=== PATIENT | female | born 1935 | race Caucasian/White ===

== ENCOUNTER → 2016-08-20 | Outpatient (REF) ==
[~2016-08-20] MED LIST: ASPIRIN 81M81 MG/TA2 PO; CARDIZEM CD 24240 MG PO; COLACE 100100 MG/CAP PO; COUMADIN 5MG5 MG/TAB PO; DIOVAN 160MG160 MG PO; DIOVAN320 MG PO; DITROPAN XL10 MG PO; DUTOPROL 12.5 M1 TE2 PO; ELIQUIS 5MG PO; IRON90 MG; KEPPRA 500MG500 MG PO; KLOR-CON SPRIN10 MEQ PO; LASIX 40MG TABL40 MG PO; LIPITOR20 MG PO; MELATONIN5 M1 PO; MULTI VITAMINS1 TAB PO; OSCAL 500 TAB500 MG PO; PRIL40 PO; THEO-24 20200 MG/CAP PO; THEO-DUR 2200 MG/TAB PO; TOPROL XL 50MG50 MG PO; TYLENOL 325MG325 MG PO; VITAMIN D32000 IU PO; ZANTAC 150MG T150 MG PO; [UNRECOGNIZED DRUG - OTHER] PO
== END ==
LOC: ZLAB.WCH 11:14
DX: Z01.89 Encounter for other specified special examinations (principal)

== ENCOUNTER → 2016-08-23 | Outpatient (REF) | LOC: ZLAB.WCH 10:17 | DX: Z01.89 Encounter for other specified special examinations (principal) ==

== ENCOUNTER 2018-11-28 12:37 | Day surgery (SDC) | payer MEDICARE, OTHER ==
[~2018-11-28] VITALS: Ht 165.1 cm; Wt 80.6 kg
[2018-11-28 13:26] VITALS: BP 136/90; PULSE 74; TEMP 97.4
[2018-11-28] MEDS ORDERED: BUMEX 1MG TA1 MG/TA1 PO ×2 (13:41)
[2018-11-28] MEDS ORDERED: COZAAR 50MG50 MG/TAB PO (13:44)
[2018-11-28] MEDS ORDERED: THEO-24400 MG PO (13:46)
[2018-11-28] MEDS ORDERED: ELIQUIS 5MG PO (13:47)
[2018-11-28] MEDS ORDERED: IMDUR 30MG30 MG/TAB PO (13:49)
[2018-11-28] MEDS ORDERED: LIPITOR 40MG TA40 MG PO (13:50)
[2018-11-28] MEDS ORDERED: SLOW-MAG 6464 MG/TAB PO (13:51)
[2018-11-28] MEDS ORDERED: MIRALAX PA17 GM/Dose PO (13:53)
[2018-11-28 14:34] VITALS: BP 109/50; PULSE 99; TEMP 97.8
--- NOTE | 2018-11-28 14:34 | NUR ---
TO RM 8 PER CART FROM [facility].. ALERT ORIENTED X3, TALKING TO STAFF AND DAUGHTER. DENIES PAIN OR DISCOMFORT. POST OP SHOE ON. DRESSINGS CLEAN DRY INTACT. DENIES NAUSEA. OPERATIVE LEG ELEVATED. RECEIVED WATER
[2018-11-28 14:50] VITALS: BP 94/47; PULSE 90
--- NOTE | 2018-11-28 14:50 | NUR ---
DENIES FEELING DIZZY OR LIGHT HEADED. LOWERED HEAD OF BED DUE TO LOW B/P.
[2018-11-28 15:05] VITALS: BP 91/51; PULSE 100
--- NOTE | 2018-11-28 15:05 | NUR ---
RECEIVED 2ND CUP OF WATER RECEIVED MUFFIN.
[2018-11-28 15:20] VITALS: BP 85/49; PULSE 114
--- NOTE | 2018-11-28 15:30 | NUR ---
AMBULATED TO BATHROOM WITH POST OP SHOE USING WHEELED WALKER. VOIDED AND TOLERATED WELL
[2018-11-28 16:00] VITALS: BP 104/57; PULSE 122
--- NOTE | 2018-11-28 16:10 | NUR ---
RECEIVED DISCHARGE INSTRUCTIONS AND VERBALIZED UNDERSTANDING. DISCONTINUED IV AND INT- CATHETER INTACT.
--- NOTE | 2018-11-28 16:35 | NUR ---
DISCHARGED PER WC BY NURSING STAFF TO PRIVATE CAR IN CARE OF DAUGHTER.
--- NOTE | 2018-11-28 16:48 | NUR ---
PATIENT STATED SHE FEELS FINE. ATE 100% AND TOLERATED WELL TATE PA- CALLED TO CONFIRM THE USE OF POST OP SHOE AND DRESSING CHANGES.
== END 2018-11-28 16:57 | disposition home or self-care (01) ==
LOC: SDCO 12:37
DX: M1A.9XX1 Chronic gout, unspecified, with tophus (tophi) (principal); I11.0 Hypertensive heart disease with heart failure; I50.9 Heart failure, unspecified; I48.2 Chronic atrial fibrillation; Z88.2 Allergy status to sulfonamides; Z79.01 Long term (current) use of anticoagulants; Z79.899 Other long term (current) drug therapy; Z90.49 Acquired absence of other specified parts of digestive tract; Z79.82 Long term (current) use of aspirin; K21.9 Gastro-esophageal reflux disease without esophagitis; M19.90 Unspecified osteoarthritis, unspecified site; Z86.73 Personal history of transient ischemic attack (TIA), and cerebral infarction without residual deficits; Z80.9 Family history of malignant neoplasm, unspecified; G40.909 Epilepsy, unspecified, not intractable, without status epilepticus
CPT/HCPCS: J0690; J2250; J2310; J3010; J7120

== ENCOUNTER 2020-09-18 20:13 | Emergency (ER) | payer MEDICARE, OTHER ==
[~2020-09-18] VITALS: Ht 165.1 cm; Wt 77.3 kg
[~2020-09-18 20:13] MED LIST changes: +BUMEX 1MG TA1 MG/TA1 PO; +COZAAR 50MG50 MG/TAB PO; +IMDUR 30MG30 MG/TAB PO; +LIPITOR 40MG TA40 MG PO; +MIRALAX PA17 GM/Dose PO; +SLOW-MAG 6464 MG/TAB PO; +THEO-24400 MG PO
[2020-09-18 20:20] VITALS: TEMP 98.1
[2020-09-18 20:42] LABS: BASO % 0.6 % (0.0-2.0); EOS % 0.3 % (0-4.0); GRAN # 5.4 (1.4-6.5); GRAN % 74.9 % (42.2-75.2); HEMOGLOBIN 10.7 g/dl (12.5-16.0); LYMPH # 1.1 (1.2-3.4); MEAN CELL VOLUME 92 fl (80.0-100.0); MEAN CORPUSCULAR HEMOGLOBIN 29 pg (27.0-31.0); MEAN CORPUSCULAR HGB CONC 32 g/dl (33.0-37.0); MEAN PLATELET VOLUME 10.6 fl (7.4-10.4); MONO # 0.6 (0.1-0.6); MONO % 8.9 % (1.7-9.3); PLATELET COUNT 322 K/mm3 (130-400); RED BLOOD COUNT 3.66 M/mm3 (4.10-5.30); REDCELL DISTRIBUTION WIDTH-CV 17.6 % (11.5-14.5)
[2020-09-18 20:44] LABS: HEMATOCRIT 33.8 % (37.0-47.0)
[2020-09-18 20:48] LABS: COLLECTION METHOD CLEAN CATCH
[2020-09-18 20:48] LABS: INR 1.4 (0.8-3.0)
[2020-09-18 20:51] LABS: PARTIAL THROMBOPLASTIN TIME 28.2 SECONDS (26.0-37.0)
[2020-09-18 20:55] LABS: PH 5 (5-8); SQUAMOUS EPITHELIAL 0-2 /hpf; URINE APPEARANCE Hazy; URINE BACTERIA Many /hpf; URINE BILIRUBIN Negative (NEGATIVE); URINE BLOOD Negative (NEGATIVE); URINE COLOR Yellow; URINE GLUCOSE Negative (NEGATIVE); URINE KETONE Negative (NEGATIVE); URINE LEUKOCYTE ESTERASE Trace (NEGATIVE); URINE NITRATE Negative (NEGATIVE); URINE PROTEIN(semi-quant) Negative (NEGATIVE); URINE RBC 0-2 /hpf; URINE UROBILINOGEN Negative (NEGATIVE)
[2020-09-18 20:57] LABS: ALANINE AMINOTRANSFERASE 17 U/L (4-34); ALBUMIN 4.2 gm/dL (3.5-5.0); ALKALINE PHOSPHATASE 122 U/L (50-136); ANION GAP 13 mmol/L (7-16); AST,SGOT 30 U/L (15-37); BILIRUBIN,TOTAL 0.6 mg/dL (0.0-1.0); BLOOD UREA NITROGEN 52 mg/dL (7-17); CALCIUM 10.2 mg/dL (8.4-10.2); CARBON DIOXIDE 21 mmol/L (22-30); CHLORIDE 103 mmol/L (98-107); GLUCOSE 117 mg/dL (74-106); LIPASE 177 U/L (23-300); POTASSIUM 4.3 mmol/L (3.4-5.0); SODIUM 138 mmol/L (137-145)
[2020-09-18 21:10] LABS: TROPONIN-I < 0.012 ng/mL (0.000-0.035)
[2020-09-18] MEDS ORDERED: MACROBID 1100 MG/CAP PO (22:08)
[2020-09-18 22:17] VITALS: BP 108/65; PULSE 98
== END 2020-09-18 22:31 | disposition home or self-care (01) ==
LOC: COL.ER 20:13
PROVIDERS: Emergency Medicine
DX: M25.512 Pain in left shoulder (principal); G89.29 Other chronic pain; N39.0 Urinary tract infection, site not specified; I10 Essential (primary) hypertension; I48.91 Unspecified atrial fibrillation; G40.909 Epilepsy, unspecified, not intractable, without status epilepticus; K21.9 Gastro-esophageal reflux disease without esophagitis; Z85.22 Personal history of malignant neoplasm of nasal cavities, middle ear, and accessory sinuses; Z86.73 Personal history of transient ischemic attack (TIA), and cerebral infarction without residual deficits; Z98.61 Coronary angioplasty status; Z88.2 Allergy status to sulfonamides; Z88.8 Allergy status to other drugs, medicaments and biological substances; Z79.82 Long term (current) use of aspirin; Z79.01 Long term (current) use of anticoagulants; Z79.899 Other long term (current) drug therapy
CPT/HCPCS: J0696; J2405

== ENCOUNTER 2020-10-21 13:28 | Inpatient (IN) | payer MEDICARE, OTHER ==
[~2020-10-21] VITALS: Ht 162.7 cm; Wt 74.5 kg
[~2020-10-21 13:28] MED LIST changes: +MACROBID 1100 MG/CAP PO
[2020-10-21 14:02] LABS: BASO % 0.5 % (0.0-2.0); EOS # 0.1 (0.0-0.7); EOS % 0.9 % (0-4.0); GRAN # 4.3 (1.4-6.5); GRAN % 78.2 % (42.2-75.2); LYMPH # 0.5 (1.2-3.4); LYMPH % 8.1 % (20.0-51.0); MEAN CELL VOLUME 90 fl (80.0-100.0); MEAN CORPUSCULAR HGB CONC 31 g/dl (33.0-37.0); MEAN PLATELET VOLUME 10.1 fl (7.4-10.4); MONO # 0.7 (0.1-0.6); MONO % 12.1 % (1.7-9.3); PLATELET COUNT 243 K/mm3 (130-400); RED BLOOD COUNT 3.54 M/mm3 (4.10-5.30); REDCELL DISTRIBUTION WIDTH-CV 17.2 % (11.5-14.5)
[2020-10-21 14:16] LABS: HEMATOCRIT 31.7 % (37.0-47.0); HEMOGLOBIN 9.9 g/dl (12.5-16.0); MEAN CORPUSCULAR HEMOGLOBIN 28 pg (27.0-31.0)
[2020-10-21] MEDS ORDERED: DITROPAN XL10 MG PO (14:16)
[2020-10-21] MEDS ORDERED: ASPIRIN 81M81 MG/TA2 PO (14:16)
[2020-10-21] MEDS ORDERED: THEO-24 20200 MG/CAP PO (14:17)
[2020-10-21] MEDS ORDERED: DULCOLAX STOOL100 MG PO (14:17)
[2020-10-21] MEDS ORDERED: PRILOSEC10 MG PO (14:18)
[2020-10-21] MEDS ORDERED: BUMEX2 MG PO (14:18)
[2020-10-21] MEDS ORDERED: DIOVAN 160MG160 MG PO (14:19)
[2020-10-21] MEDS ORDERED: ELIQUIS 5MG PO (14:20)
[2020-10-21] MEDS ORDERED: ISORDIL TITRADO30 MG PO (14:21)
[2020-10-21] MEDS ORDERED: TOPROL XL100 MG PO (14:22)
[2020-10-21] MEDS ORDERED: TOPROL XL 50MG50 MG PO (14:22)
[2020-10-21] MEDS ORDERED: MAG DELAY64 M1 PO (14:23)
[2020-10-21] MEDS ORDERED: K-DUR20 MEQ PO (14:23)
[2020-10-21] MEDS ORDERED: KEPPRA1000 MG PO (14:24)
[2020-10-21 14:25] LABS: ALBUMIN 3.7 gm/dL (3.5-5.0); BILIRUBIN,TOTAL 0.5 mg/dL (0.0-1.0); CALCIUM 9.8 mg/dL (8.4-10.2); CREATININE, serum 1.6 (0.52-1.25); POTASSIUM 4.3 mmol/L (3.4-5.0); TOTAL PROTEIN 6.4 gm/dL (6.4-8.2)
[2020-10-21] MEDS ORDERED: VITAMIN D31000 I1 PO (14:25)
[2020-10-21] MEDS ORDERED: ONE-A-DAY ESSE1 EACH PO (14:25)
[2020-10-21] MEDS ORDERED: LIPITOR20 MG PO (14:26)
[2020-10-21] MEDS ORDERED: BUMEX 1MG TA1 MG/TA1 PO (14:26)
[2020-10-21] MEDS ORDERED: TYLENOL 500MG500 MG PO (14:27)
[2020-10-21] MEDS ORDERED: MIRALAX PA17 GM/Dose PO (14:27)
[2020-10-21 14:37] LABS: TROPONIN-I 0.023 ng/mL (0.000-0.035)
[2020-10-21 16:17] VITALS: BP 85/59; PULSE 108; TEMP 98.1
--- NOTE | 2020-10-21 19:37 | NUR ---
Awake, alert, oriented x 3, forgetful, telemetry in use, call wood w/i reach, NPO status maintained, updated on plan of care.
[2020-10-21 20:39] VITALS: BP 112/60; BP 98/47; PULSE 87; PULSE 95; TEMP 97.4; TEMP 97.6
[2020-10-21 23:43] VITALS: BP 90/56; PULSE 103; TEMP 97.6
[2020-10-22] VITALS (15 sets, daily range): BP systolic 90–167; BP diastolic 50–75; PULSE 54–137; TEMP 97.6–98.4
--- NOTE | 2020-10-22 00:47 | NUR ---
patient with HR of 130-145, Call placed to Oumou Burnette- here to see patient at bedside, See new orders at this time. Patient awake, alert, oriented x 4, talkative, c/o mild shortness of breath and anxiety. O2@2L per NC added at this time.
--- NOTE | 2020-10-22 03:20 | NUR ---
Telemetry running 145 beats per min, Call placed to Oumou Burnette - at bedside, c/o chest pain, L arm pain, Shob, VS stabel, O2@2L per NC in use 100%, See new orders, ASA 325mg po given as ordered, Nitro 0.4mg SL given per order, patient is awake, alert, oriented x 3, verbal with clear speech.
--- NOTE | 2020-10-22 04:38 | NUR ---
Patient resting quietly, Cardiology will see this am- stress test planned, denies further chest pain, denies shob, fall precautions in use, call wood w/i reach.
--- NOTE | 2020-10-22 07:00 | NUR ---
Report with SEBASTIÁN Lujan. Pt sleeping upon entering room, awakens with verbal stimuli, denies needs. O2 at 2 L/min via NC with sats 100%. Call light in reach.
--- NOTE | 2020-10-22 08:00 | NUR ---
Assessment complete. Pt sitting up in bed, A&O x 3, denies pain at this time. Saline lock IV to right AC without s/s of complications. Bilat lower ext edema noted. Physical assessment otherwise unremarkable. No further needs reported. Call light in reach.
[2020-10-22 08:03] LABS: BASO % 0.3 % (0.0-2.0); EOS % 0.1 % (0-4.0); GRAN # 6.1 (1.4-6.5); GRAN % 83.9 % (42.2-75.2); LYMPH # 0.4 (1.2-3.4); LYMPH % 5.1 % (20.0-51.0); MEAN CELL VOLUME 91 fl (80.0-100.0); MEAN CORPUSCULAR HGB CONC 30 g/dl (33.0-37.0); MEAN PLATELET VOLUME 10.8 fl (7.4-10.4); MONO # 0.7 (0.1-0.6); PLATELET COUNT 233 K/mm3 (130-400); RED BLOOD COUNT 3.43 M/mm3 (4.10-5.30); REDCELL DISTRIBUTION WIDTH-CV 17.4 % (11.5-14.5)
[2020-10-22 08:10] LABS: CALCIUM 9.9 mg/dL (8.4-10.2); CREATININE, serum 1.73 (0.52-1.25)
[2020-10-22 08:11] LABS: HEMATOCRIT 31.1 % (37.0-47.0); HEMOGLOBIN 9.4 g/dl (12.5-16.0); MEAN CORPUSCULAR HEMOGLOBIN 27 pg (27.0-31.0)
--- NOTE | 2020-10-22 08:40 | NUR ---
Pt to [facility] for testing via .
--- NOTE | 2020-10-22 10:56 | NUR ---
DR. Camacho notified prior performing stress test of patient abnormal resting stress EKG. Physican wanted to proceed with test.
--- NOTE | 2020-10-22 11:00 | NUR ---
Pt back to room, resting in bed visiting with family at bedside. Pt denies pain or needs, states, "I'm just hungry." This nurse reviews plan to await test results before allowing pt to eat. Call light in reach.
--- NOTE | 2020-10-22 11:26 | NUR ---
Tele calls to reports pt's heart rate 150-185 bpm. Pt up with PT at this time. Provider notified.
--- NOTE | 2020-10-22 11:42 | NUR ---
First visit from the bench inspector. No needs right now.
--- NOTE | 2020-10-22 15:25 | NUR ---
SW met with the patient to discuss discharge plan. The patient lives in [place] with her daughter, Suzy (ph#[phone]), and son-in-law, Rakan. She reports needing assistance with ADLs and has a cane. She states that Suzy has been helping her with her ADLs. She denies having any home health services. The patient's PCP is Dr. Andrea Nair and she receives her medications at [facility]. PT/OT are recommending SNF. SW discussed this with the patient. The patient reports that she is interested in SNF, but that SW would need to talk to her family about the facilities. SW then contacted the patient's daughter, Suzy. Suzy reports that they have already been working on things. She states that the patient's sister resides at [facility] and that they want the patient to go there upon discharge. Suzy reports that she has already been talking to Nishi at the facility. She states that they already have an accepting provider in that area, Dr. Sheldon Saldivar. TORI contacted and faxed a [facility] to [facility]. Awaiting screen. [facility] #[phone] fax#[phone] Discharge plan: SNF, awaiting screen*
--- NOTE | 2020-10-22 17:52 | NUR ---
Pt sitting up in bed for dinner, denies other needs or pain at this time. Call light in reach.
--- NOTE | 2020-10-22 19:06 | NUR ---
Report to SEBASTIÁN Lujan.
--- NOTE | 2020-10-22 19:30 | NUR ---
Resting quietly, fall precautions in place, call wood w/i reach. VS stable, denies pain, updated on plan of care.
--- NOTE | 2020-10-22 23:38 | NUR ---
Telemetry pt is sustaining rate of 160's- Call placed to Oumou Burnette PA- coming to bedside, see orders, call placed to RT- for EKG. Patient was ambulating to bathroom and back. VS stable, respirations even and unlabored, skin warm and dry. Oumou Burnette and RT at bedside at this time, See New orders.
[2020-10-23 03:44] VITALS: BP 144/66; PULSE 110; TEMP 98.2
[2020-10-23 06:28] LABS: BASO % 0.2 % (0.0-2.0); EOS % 0.7 % (0-4.0); GRAN # 4.2 (1.4-6.5); GRAN % 72.5 % (42.2-75.2); LYMPH # 0.6 (1.2-3.4); LYMPH % 10.3 % (20.0-51.0); MEAN CELL VOLUME 89 fl (80.0-100.0); MEAN CORPUSCULAR HGB CONC 31 g/dl (33.0-37.0); MEAN PLATELET VOLUME 10.6 fl (7.4-10.4); MONO # 0.9 (0.1-0.6); PLATELET COUNT 225 K/mm3 (130-400); REDCELL DISTRIBUTION WIDTH-CV 17.3 % (11.5-14.5)
[2020-10-23 06:34] LABS: HEMATOCRIT 31.1 % (37.0-47.0); HEMOGLOBIN 9.6 g/dl (12.5-16.0); MEAN CORPUSCULAR HEMOGLOBIN 27 pg (27.0-31.0)
[2020-10-23 06:43] LABS: CALCIUM 9.8 mg/dL (8.4-10.2); CREATININE, serum 1.54 (0.52-1.25); POTASSIUM 4.5 mmol/L (3.4-5.0)
[2020-10-23 07:29] VITALS: BP 121/76; PULSE 110; TEMP 97.8
--- NOTE | 2020-10-23 07:33 | NUR ---
Assessment completed, alert/oriented, continue to be in A.fib with occasional RVR, rate 130s this moring , NERI Guerrier continues by Cardiology and I have given it now this moring, will reevaluate, other vital signs stable, patient does report some dyspnea with exertion but overall stated she is feeling better than when she was admitted, lungs are CTA but diminished throughout, she is on room air, no peripral edema noted and pedal pulses are palpable, she is sitting up eating breakfast and denies other needs at this time
[2020-10-23 11:24] VITALS: BP 125/48; PULSE 93; TEMP 97.8
--- NOTE | 2020-10-23 14:30 | NUR ---
Television Writer contacted Nishi at [facility] to [facility] will [facility] tomorrow. Nishi advised they will be able to admit patient tomorrow and would like to schedule a tentative brain picker time of 1300. SW contacted patient's daughter, Suzy to provide update. Discharge Plan: [facility] and [facility]
[2020-10-23 15:57] VITALS: BP 127/48; PULSE 96; TEMP 97.7
[2020-10-23 21:09] VITALS: BP 131/53; PULSE 102; TEMP 97.4
[2020-10-24 01:18] VITALS: BP 117/49; PULSE 106; TEMP 97.5
[2020-10-24 04:54] VITALS: BP 123/50; PULSE 110; TEMP 97.6
[2020-10-24 07:04] LABS: CALCIUM 9.3 mg/dL (8.4-10.2); CREATININE, serum 1.62 (0.52-1.25); MAGNESIUM 1.4 mg/dL (1.6-2.3); POTASSIUM 4.6 mmol/L (3.4-5.0)
[2020-10-24 07:26] VITALS: BP 116/40; PULSE 108; TEMP 98
--- NOTE | 2020-10-24 08:00 | NUR ---
Shift assessment complete. Sitting up in recliner eating breakfast. A&Ox4. Heart rate elevated 110-120s at rest, rhythm irregular. Lungs CTA. Reports mild SOA and dizziness w/ambulation. Pain 7/10 to left shoulder, ES tylenol given per orders. Denies other needs currently. Continuing to monitor.
--- NOTE | 2020-10-24 08:56 | NUR ---
Pt assisted to restroom. Telemetry notified this RN that HR increased as high as 170s while up. Cardiology aware and one-time dose of digoxin ordered.
[2020-10-24] MEDS ORDERED: ELIQUIS 2.5 PO (09:11)
[2020-10-24] MEDS ORDERED: DIGITEK0.125 MG PO (09:11)
[2020-10-24] MEDS ORDERED: CARDIZEM CD 24240 MG PO (09:12)
[2020-10-24] MEDS ORDERED: NITROSTAT0.4 MG/TAB SL (09:12)
[2020-10-24] MEDS ORDERED: K-TAB20 PO (09:15)
[2020-10-24] MEDS ORDERED: MELATIN 3 MG-11 TAB PO (09:15)
[2020-10-24 11:54] VITALS: BP 120/52; PULSE 103; TEMP 97.7
--- NOTE | 2020-10-24 12:50 | NUR ---
IV to right AC removed, tip intact. Pt assisted into wheelchair and escorted out w/staff from [facility]. Report called to nurse at [facility] and all questions answered.
--- NOTE | 2020-10-24 15:12 | NUR ---
Teletype Installer attended clinical rounds with the team and patient to discharge to [facility] today. SW met with patient following rounds and she is agreeable to discharge to [facility]. Transport time was set for 1300. SW contacted patient's daughter, Suzy to advise that patient will discharge today at 1300 and she is in agreement. SW faxed discharge orders to [facility]. No additional needs at this time.
== END 2020-10-24 12:50 | DRG 309 ==
LOC: COL.ER 13:28 → MEDICAL 14:36
PROVIDERS: Emergency Medicine; Internal Medicine; Physician Assistant; ADMIT Internal Medicine
DX: I48.91 Unspecified atrial fibrillation (principal); E87.1 Hypo-osmolality and hyponatremia; D50.0 Iron deficiency anemia secondary to blood loss (chronic); I27.20 Pulmonary hypertension, unspecified; I34.0 Nonrheumatic mitral (valve) insufficiency; E78.5 Hyperlipidemia, unspecified; G47.00 Insomnia, unspecified; K21.9 Gastro-esophageal reflux disease without esophagitis; G40.909 Epilepsy, unspecified, not intractable, without status epilepticus; E66.9 Obesity, unspecified; Z20.822 Contact with and (suspected) exposure to COVID-19; N18.9 Chronic kidney disease, unspecified; Z66 Do not resuscitate; I12.9 Hypertensive chronic kidney disease with stage 1 through stage 4 chronic kidney disease, or unspecified chronic kidney disease; Z86.73 Personal history of transient ischemic attack (TIA), and cerebral infarction without residual deficits; Z79.82 Long term (current) use of aspirin
CPT/HCPCS: 99222-AI; 99232-AI; 99239; A9500; J1160; J1200; J2785